=== PATIENT | male | born 1935 | race Caucasian/White ===

== ENCOUNTER 2017-07-31 08:05 | Emergency (ER) | payer OTHER ==
[~2017-07-31] VITALS: Ht 175.3 cm; Wt 120.0 kg
[2017-07-31] MEDS ORDERED: OMEP40CA2 PO (08:25)
[2017-07-31] MEDS ORDERED: CLAR10CA3 PO (08:25)
[2017-07-31] MEDS ORDERED: ASPI81TA85 PO (08:25)
[2017-07-31] MEDS ORDERED: PRAV40TA2 PO (08:25)
[2017-07-31] MEDS ORDERED: NITR0.4S14 SL (08:25)
[2017-07-31] MEDS ORDERED: LOSA100T36 PO (08:25)
[2017-07-31] MEDS ORDERED: FLOM5CAP PO (08:25)
[2017-07-31] MEDS ORDERED: METO37.5 PO (08:25)
[2017-07-31] MEDS ORDERED: FOLI800C PO (08:25)
[2017-07-31] MEDS ORDERED: FURO20TA2 PO (08:25)
[2017-07-31] MEDS: IPRATROPIUM 0.5MG/ALBUTEROL 2.5MG INH SOL UD 3ML (DUONEB)(J7620) NEB SCH ×3 (09:10→09:29)
[2017-07-31 09:17] LABS: ABG BASE EXCESS -2.3 (-2.0-2.0); ABG HCO3 21.8 MEQ/L (22.0-26.0); ABG PARTIAL PRESSURE CO2 35.7 mmHg (35.0-45.0); ABG PARTIAL PRESSURE O2 98.1 mmHg (75.0-100.0); ABG STANDARD HCO3 22.6 MEQ/L (22.0-26.0); ABG TOTAL CO2 22.9 MEQ/L (23.0-31.0); ABG pH (ARTERIAL) 7.404 UNITS (7.350-7.450)
[2017-07-31 09:32] LABS: BASO # 0.1 K/mm3 (0.0-0.2); BASO % 0.8 % (0.0-1.0); EOS # 0.1 K/mm3 (0.0-0.50); EOS % 1.4 % (0.0-3.0); LARGE UNSTAINED CELL # 0.1 K/mm3 (0.0-0.4); LARGE UNSTAINED CELL % 1.2 % (0.0-4.0); LYMPH # 1.5 K/mm3 (1.5-4.5); LYMPH % 16.9 % (24.0-44.0); MEAN CORPUSCULAR HEMOGLOBIN 30.6 pg (27.0-33.0); MEAN CORPUSCULAR HGB CONC 33.4 g/dl (32.0-36.5); MEAN CORPUSCULAR VOLUME 91.5 fl (80.0-96.0); MONO # 0.6 K/mm3 (0.0-0.8); MONO % 6.4 % (0.0-5.0); NEUTROPHILS # 6.6 K/mm3 (1.8-7.7); NEUTROPHILS % 73.4 % (36.0-66.0); PLATELET COUNT, AUTOMATED 188 k/mm3 (150-450); WHITE BLOOD COUNT 8.9 K/mm3 (4.0-10.0)
--- NOTE | 2017-07-31 09:57 | REP ---
Chest x-ray: Two views. History: Dyspnea. Comparison study: July 11, 2011. Findings: Patient is status post prior median sternotomy. There is a small linear density in the left base consistent with plate-like atelectasis or fibrosis. This is new from the 2011 prior study. No acute infiltrate is seen. There is a granulomatous calcification in the left lung apex and lymph node calcific residuals are seen in the mediastinum. A coronary artery stent is visible on the lateral view overlying the heart. There is a somewhat nodular neodensity in the right lung apex adjacent to a previously visible calcification. A new lung nodule must be suspected. Lung vick are otherwise clear. A surgical anchor is seen in the right humeral head unchanged. Impression: Prior sternotomy. Linear plate-like atelectasis versus scarring left base. Nodular neodensity right apex. Rule out pulmonary nodule. Recommend chest CT. Signed by Sergey Hines MD 07/31/2017 02:35 P
[2017-07-31 10:04] LABS: ANION GAP 6 MEQ/L (8-16); BLOOD UREA NITROGEN 31 MG/DL (7-18); CALCIUM LEVEL 9.2 MG/DL (8.8-10.2); CARBON DIOXIDE LEVEL 30 MEQ/L (21-32); CHLORIDE LEVEL 106 MEQ/L (98-107); CREATININE FOR GFR 1.45 MG/DL (0.70-1.30); GLOMERULAR FILTRATION RATE 49.4 (>35); GLUCOSE, FASTING 131 MG/DL (83-110); POTASSIUM SERUM 4.6 MEQ/L (3.5-5.1); SODIUM LEVEL 142 MEQ/L (136-145)
[2017-07-31] MEDS ORDERED: methylPREDNISolone INJ 125 MG/2 ML VIAL (J2930) IV ONE (11:00)
[2017-07-31] MEDS ORDERED: ALBUTEROL SULFATE 2.5 MG/0.5 ML INH NEB SOLN INH ONE (11:30)
--- NOTE | 2017-07-31 12:23 | REP ---
CT STUDY OF THE CHEST WITHOUT CONTRAST: HISTORY: Right upper lobe nodule. CT FINDINGS: The study confirms the presence of a somewhat spiculated irregularly shaped noncalcified pulmonary nodule 2.4 cm in greatest diameter in the right upper lobe. Along the superior margin of this there is a granulomatous calcification which has been visible previously. The soft tissue nodule is new. There is a granulomatous nodule in the left apex. No other significant pulmonary nodule is seen. No bony destructive lesion is appreciated. No mediastinal or hilar adenopathy is seen. No pleural or pericardial effusion is noted. There is a small sliding hiatal hernia. Vascular calcification is noted including coronary artery vascular calcification. There are granulomatous calcifications in the spleen. No adrenal lesion is seen. IMPRESSION: 2.4 cm somewhat spiculated noncalcified nodule in the right upper lobe adjacent to a previously noted granuloma. The lesion is suspicious for primary lung malignancy. Consideration should be given to CT guided needle biopsy and/or PET CT scanning. Hiatal hernia and granulomatous calcific residuals are also noted. Signed by Sergey Hines MD 07/31/2017 02:38 P
[2017-07-31] MEDS ORDERED: AZITHROMYCIN 250 MG TAB PO ONE (12:30)
[2017-07-31 12:38] VITALS: O2SAT 94
[2017-07-31] MEDS ORDERED: AZIT500T2 PO (13:35)
[2017-07-31] MEDS ORDERED: PROT1TAB2 PO (13:35)
[2017-07-31] MEDS ORDERED: ALBU17IN INH (13:35)
[2017-07-31] MEDS ORDERED: PRED20TA PO (13:35)
[2017-07-31] MEDS ORDERED: AEROMIS XX (13:35)
[2017-07-31 13:46] VITALS: BP 174/79
--- NOTE | 2017-08-01 06:06 | ECGEPIP ---
Stationary ECG Study [facility] - ED Test Date: 2017-07-31 Pat Name: LYNETTE LERNER Department: Room: - Gender: [employer]: rn : 1935 Requested By: Uvaldo Chen Order Number: [id number] Reading MD: Uvaldo Christian Measurements Intervals [place] Rate: 59 P: 53 AL: 259 QRS: 33 QRSD: 148 T: 31 QT: 445 QTc: 444 Interpretive Statements SINUS BRADYCARDIA WITH FIRST DEGREE AV BLOCK RIGHT BUNDLE BRANCH BLOCK, NEW COMPARED TO 11/28/16 Electronically Signed On 08-01-2017 6:06:06 EDT by Uvaldo Christian
--- NOTE | 2017-08-01 09:23 | ED PDOC ---
Post-Departure Follow-Up certified letter sent pertaining to radiology report Sheree More MD Aug 01, 2017 09:23
== END 2017-07-31 14:01 | disposition home or self-care (01) ==
LOC: M ED 08:05
DX: J20.9 Acute bronchitis, unspecified (principal); R91.1 Solitary pulmonary nodule; N18.3 Chronic kidney disease, stage 3 (moderate); I12.9 Hypertensive chronic kidney disease with stage 1 through stage 4 chronic kidney disease, or unspecified chronic kidney disease; E78.5 Hyperlipidemia, unspecified; I25.9 Chronic ischemic heart disease, unspecified; N40.0 Benign prostatic hyperplasia without lower urinary tract symptoms; Z95.1 Presence of aortocoronary bypass graft; Z79.899 Other long term (current) drug therapy; Z79.82 Long term (current) use of aspirin; Z87.891 Personal history of nicotine dependence
CPT/HCPCS: 36600; 71020; 71250; 80048; 82550; 82553; 82803; 83880; 84443; 84484; 85025; 87040; 93005; 93041; 94640; 96374; 99285; J2930